=== PATIENT | female | born 1985 | race Hispanic/Latino ===

== ENCOUNTER 2018-03-28 16:10 | Emergency (ER) | payer BC ==
[2018-03-28 17:03] VITALS: BMI 27.3
[2018-03-28] MEDS ORDERED: Lactated Ringer's 1,000 ML IV SCH (17:30)
[2018-03-28 18:06] LABS: SQUAMOUS EPITHIAL 2 /hpf (0-5); URINE BACTERIA OCC (<OCC); URINE BILIRUBIN NEGATIVE (NEGATIVE); URINE BLOOD NEGATIVE (NEGATIVE); URINE CLARITY SLIGHTY-CLOUDY (Clear); URINE COLOR STRAW (YELLOW); URINE GLUCOSE (UA) NEG (Normal); URINE LEUKOCYTE ESTERASE NEG Leu/uL (Negative); URINE PROTEIN NEGATIVE (NEGATIVE); URINE UROBILINOGEN 0.2-1.0 mg/dL (0.2-1.0)
[2018-03-29 00:43] VITALS: BP 107/66; PULSE 76; O2SAT 100
== END 2018-03-28 20:15 | disposition home or self-care (01) ==
LOC: H.EROB2 16:10
DX: O09.93 Supervision of high risk pregnancy, unspecified, third trimester (principal); Z87.59 Personal history of other complications of pregnancy, childbirth and the puerperium; O26.93 Pregnancy related conditions, unspecified, third trimester; R10.2 Pelvic and perineal pain; O09.293 Supervision of pregnancy with other poor reproductive or obstetric history, third trimester; Z3A.34 34 weeks gestation of pregnancy
CPT/HCPCS: 81003; 82731; 99283; J7120